=== PATIENT | female | born 1995 | race Caucasian/White ===

== ENCOUNTER → 2024-08-04 | Outpatient (REF) | payer OTHER | LOC: LAB 17:30 | DX: R30.0 Dysuria (principal) ==

== ENCOUNTER → 2024-08-06 | Outpatient (CLI) | payer OTHER ==
[2024-08-06 13:43] LABS: BASO # 0.03 K/mm3 (0.02-0.10); EOS # 0.19 K/mm3 (0.04-0.40); EOS % 2.9 % (1.0-5.0); HEMATOCRIT 37.5 % (37.0-47.0); HEMOGLOBIN 11.9 g/dL (12.5-16.0); LYMPH# 1.27 K/mm3 (1.50-4.00); MEAN CELL VOLUME 80 fl (78-100); MEAN CORPUSCULAR HEMOGLOBIN 25 pg (27-31); MEAN CORPUSCULAR HGB CONC 32 g/dL (33-37); MEAN PLATELET VOLUME 9.1 fl (7.4-10.4); MONO # 0.82 K/mm3 (0.20-0.80); NEU # 4.22 K/mm3 (1.40-6.50); PLATELET COUNT 320 K/mm3 (130-400); RED BLOOD COUNT 4.69 M/mm3 (4.10-5.30); RED CELL DISTRIBUTION WIDTH 14.3 % (11.5-14.5); WHITE BLOOD COUNT 6.5 K/mm3 (4.8-10.8)
[2024-08-06 13:51] LABS: ALBUMIN 4.2 g/dL (3.5-5.0)
[2024-08-06 13:52] LABS: CALCIUM 9.3 mg/dL (8.3-10.5)
[2024-08-06 13:53] LABS: TOTAL PROTEIN 7.1 g/dL (6.4-8.3)
[2024-08-06 13:55] LABS: TOTAL BILIRUBIN 0.2 mg/dL (0.2-1.2)
== END ==
LOC: LAB 13:29
PROVIDERS: Physician Assistant
DX: R05.9 Cough, unspecified (principal)